=== PATIENT | female | born 1945 | race Caucasian/White ===

== ENCOUNTER 2021-10-03 00:45 | Emergency (ER) | payer MEDICARE, BC ==
[~2021-10-03] VITALS: Ht 157.5 cm; Wt 50.0 kg
[2021-10-03 00:45] VITALS: BP 150/81
== END 2021-10-03 03:25 | disposition home or self-care (01) ==
LOC: ER 00:45
DX: S93.402A Sprain of unspecified ligament of left ankle, initial encounter (principal); W01.0XXA Fall on same level from slipping, tripping and stumbling without subsequent striking against object, initial encounter; Y93.89 Activity, other specified; Y92.89 Other specified places as the place of occurrence of the external cause; Y99.8 Other external cause status
CPT/HCPCS: 73610